=== PATIENT | male | born 1945 | race Caucasian/White ===

== ENCOUNTER 2024-05-25 21:35 | Inpatient (IN) | payer OTHER ==
[~2024-05-25] VITALS: Ht 170.2 cm; Wt 81.6 kg
[2024-05-25] MEDS ORDERED: MORPHINE SULFATE 4 MG/1 ML DISP.SYRIN ONE (22:39)
[2024-05-25] MEDS: FAMOTIDINE. 20 MG/2 ML VIAL IV ONE (23:05)
[2024-05-25] MEDS: MORPHINE SULFATE 2 MG/1 ML DISP.SYRIN IV ONE (23:05)
[2024-05-25] MEDS: IV NS 1000 ML 1,000 ML IV ONE (23:05)
[2024-05-25] MEDS: ONDANSETRON 4 MG/2 ML VIAL IV ONE (23:05)
[2024-05-25 23:07] LABS: CALCIUM 9.5 mg/dL (8.5-10.1); CARBON DIOXIDE 26 mmol/L (21-32); CHLORIDE 97 mmol/L (98-107); CREATININE 0.9 mg/dL (0.6-1.3); GLUCOSE 140 mg/dL (74-106); POTASSIUM 3.1 mmol/L (3.5-5.1); SODIUM SERUM 135 mmol/L (136-145); UREA NITROGEN, BLOOD 9 mg/dL (7-18)
[2024-05-25 23:08] LABS: BASOPHILS % (AUTO) 0.1 % (0.0-2.0); HEMATOCRIT 46.7 % (36.7-47.1); HEMOGLOBIN 16.1 g/dL (12.5-16.3); LYMPHOCYTES # (AUTO) 0.3 K/uL (0.8-4.8); LYMPHOCYTES % (AUTO) 1.5 % (20.5-51.5); MEAN CORPUSCULAR HEMOGLOBIN 29.7 uug (23.8-33.4); MEAN CORPUSCULAR HGB CONC 34 g/dL (32.5-36.3); MEAN CORPUSCULAR VOLUME 86.5 fL (73.0-96.2); MONOCYTES # (AUTO) 1.4 K/uL (0.1-1.30); MONOCYTES % (AUTO) 6.3 % (0.0-11.0); NEUTROPHILS # (AUTO) 19.8 K/uL (1.8-8.9); NEUTROPHILS % (AUTO) 92.1 % (38.5-71.5); PLATELET COUNT (AUTO) 155 K/uL (152-348); RED BLOOD CELL COUNT(AUTO) 5.41 MIL/uL (4.06-5.63); RED CELL DISTRIBUTION WIDTH 14.2 % (12.1-16.2); WHITE BLOOD COUNT (AUTO) 21.5 K/uL (3.6-10.2)
[2024-05-25 23:09] LABS: DIFFERENTIAL COMMENT 1
[2024-05-25 23:14] LABS: ALANINE AMINOTRANSFERASE 271 U/L (16-63); ALKALINE PHOSPHATASE 455 U/L (50-136); ASPARTATE AMINOTRANSFERASE 161 U/L (15-37); BILIRUBIN,DIRECT 5.1 mg/dL (0.0-0.2); BILIRUBIN,TOTAL 8.2 mg/dL (0.2-1.0); LIPASE 31 U/L (16-77); TOTAL PROTEIN, SERUM 7.7 g/dL (6.4-8.2)
[2024-05-25] MEDS ORDERED: PIPERACILLIN/TAZO 4.5 GM VIAL IV ONE (23:33)
[2024-05-25] MEDS: PIPERACILLIN SODIUM/TAZOBACTAM 4.5 G in IV DEXTROSE 5% 50 ML IV SCH (23:46)
[2024-05-26] MEDS: PIPERACILLIN SODIUM/TAZOBACTAM 4.5 G in IV DEXTROSE 5% 50 ML IV STA (00:10)
[2024-05-26] MEDS ORDERED: HYDROMORPHONE 1 MG/1 ML DISP.SYRIN ONE (00:15)
[2024-05-26] MEDS: HYDROMORPHONE 1 MG/1 ML DISP.SYRIN IV ONE (00:16)
[2024-05-26 00:29] LABS: *BLOOD, URINE 2+ (NEGATIVE); *CLARITY,URINE CLEAR (CLEAR); *COLOR,URINE YELLOW (YELLOW); *KETONES,URINE 2+ (NEGATIVE); *PROTEIN,URINE NEGATIVE (NEGATIVE); *UROBILINOGEN,URINE 0.2 E.U./dl (NORMAL); LEUKOCYTE ESTERASE ,URINE NEGATIVE (NEGATIVE); NITRITE, URINE NEGATIVE (NEGATIVE); PH,URINE 6.5 (5.0-8.0); UGLUCOSE NEGATIVE (NEGATIVE)
[2024-05-26 00:31] LABS: *BILIRUBIN,URIN 1+ (NEGATIVE)
[2024-05-26 00:43] LABS: BACTERIA,URINE RARE /HPF (NONE SEEN); RBC,URINE 20-50 /HPF (0-3); SQUAMOUS EPITHELIAL CELL,UR FEW /HPF (NONE SEEN); WBC,URINE 0-3 /HPF (0-3)
[2024-05-26] MEDS ORDERED: REMEDY ESSENTIAL ZINC PASTE 113 GM TP PRN (01:00)
[2024-05-26] MEDS ORDERED: ONDANSETRON 4 MG/2 ML VIAL IV PRN (01:00)
[2024-05-26] MEDS ORDERED: AMLO10TA59 PO (01:20)
[2024-05-26] MEDS ORDERED: LISI40TA13 PO (01:20)
[2024-05-26] MEDS ORDERED: ATOR40TA PO (01:20)
[2024-05-26] MEDS ORDERED: TIMO5DRO18 EACHEYE (01:23)
[2024-05-26] MEDS ORDERED: LATA7.5D OP (01:23)
[2024-05-26] MEDS ORDERED: BRIM10DR6 EACHEYE (01:23)
[2024-05-26] MEDS: MORPHINE SULFATE 2 MG/1 ML DISP.SYRIN IV PRN (02:46)
[2024-05-26] MEDS ORDERED: PIPERACILLIN/TAZOBACTAM/D5W 50 ML IV ONE (03:45)
[2024-05-26 05:35] VITALS: BP 145/71; TEMP 98.2; O2SAT 90
[2024-05-26] MEDS ORDERED: PIPERACILLIN SODIUM/TAZOBACTAM 3.375 G in IV DEXTROSE 5% 50 ML IV SCH (06:00)
[2024-05-26 06:46] LABS: BASOPHILS # (AUTO) 0.1 K/UL (0.0-0.2); BASOPHILS % (AUTO) 0.3 % (0.0-2.0); HEMATOCRIT 43.3 % (36.7-47.1); HEMOGLOBIN 15.1 g/dL (12.5-16.3); LYMPHOCYTES # (AUTO) 0.3 K/uL (0.8-4.8); LYMPHOCYTES % (AUTO) 1.4 % (20.5-51.5); MEAN CORPUSCULAR HEMOGLOBIN 30.4 uug (23.8-33.4); MEAN CORPUSCULAR HGB CONC 35 g/dL (32.5-36.3); MEAN CORPUSCULAR VOLUME 87.2 fL (73.0-96.2); MONOCYTES # (AUTO) 1.2 K/uL (0.1-1.30); MONOCYTES % (AUTO) 5.5 % (0.0-11.0); NEUTROPHILS # (AUTO) 19.9 K/uL (1.8-8.9); NEUTROPHILS % (AUTO) 92.8 % (38.5-71.5); PLATELET COUNT (AUTO) 131 K/uL (152-348); RED BLOOD CELL COUNT(AUTO) 4.96 MIL/uL (4.06-5.63); RED CELL DISTRIBUTION WIDTH 14.5 % (12.1-16.2); WHITE BLOOD COUNT (AUTO) 21.4 K/uL (3.6-10.2)
[2024-05-26 06:53] LABS: DIFFERENTIAL COMMENT 1
[2024-05-26 06:54] LABS: ALANINE AMINOTRANSFERASE 222 U/L (16-63); ALBUMIN 3.3 g/dL (3.4-5.0); ALKALINE PHOSPHATASE 382 U/L (50-136); ASPARTATE AMINOTRANSFERASE 126 U/L (15-37); BILIRUBIN,DIRECT 6.5 mg/dL (0.0-0.2); BILIRUBIN,TOTAL 9.2 mg/dL (0.2-1.0); CARBON DIOXIDE 28 mmol/L (21-32); CHLORIDE 100 mmol/L (98-107); CREATININE 1.3 mg/dL (0.6-1.3); GLUCOSE 108 mg/dL (74-106); MAGNESIUM 1.7 mg/dL (1.8-2.4); NT-PRO BNP 17371 pg/mL (0-125); PHOSPHOROUS 1.5 mg/dL (2.5-4.9); SODIUM SERUM 138 mmol/L (136-145); TOTAL PROTEIN, SERUM 6.7 g/dL (6.4-8.2); UREA NITROGEN, BLOOD 11 mg/dL (7-18)
[2024-05-26] MEDS: PIPERACILLIN SODIUM/TAZOBACTAM 3.375 G in IV DEXTROSE 5% 100 ML IV SCH (07:42)
[2024-05-26 07:51] VITALS: BP 123/61; TEMP 97.6; O2SAT 97
[2024-05-26] MEDS: MAGNESIUM SULFATE/D5W 100 ML IV SCH (08:15)
[2024-05-26] MEDS: POTASSIUM CHLORIDE 50 ML IV SCH (08:15)
[2024-05-26] MEDS: PANTOPRAZOLE SODIUM 40 MG VIAL IV SCH (08:17)
[2024-05-26 08:20] LABS: POTASSIUM 2.7 mmol/L (3.5-5.1)
[2024-05-26 10:16] VITALS: BP 139/55
[2024-05-26] MEDS: LISINOPRIL 20 MG TABLET PO SCH (10:16)
[2024-05-26] MEDS ORDERED: ONDA4VIA23 IV (10:59)
[2024-05-26] MEDS ORDERED: PANT40VI IV (10:59)
[2024-05-26] MEDS ORDERED: PIPE3.379 IV (10:59)
[2024-05-26 11:17] LABS: ALANINE AMINOTRANSFERASE 212 U/L (16-63); ALBUMIN 3.4 g/dL (3.4-5.0); ALKALINE PHOSPHATASE 362 U/L (50-136); ASPARTATE AMINOTRANSFERASE 123 U/L (15-37); BILIRUBIN,TOTAL 9.2 mg/dL (0.2-1.0); CARBON DIOXIDE 25 mmol/L (21-32); CHLORIDE 101 mmol/L (98-107); CREATININE 1.2 mg/dL (0.6-1.3); GLUCOSE 109 mg/dL (74-106); POTASSIUM 2.9 mmol/L (3.5-5.1); SODIUM SERUM 139 mmol/L (136-145); TOTAL PROTEIN, SERUM 6.7 g/dL (6.4-8.2); UREA NITROGEN, BLOOD 13 mg/dL (7-18)
[2024-05-26] MEDS: TIMOLOL MALEATE 0.5% OPHT DROP 5 ML BOTTLE EACHEYE SCH (11:34)
[2024-05-26] MEDS: BRIMONIDINE 0.2% OPHT DROP 10 ML BOTTLE EACHEYE SCH (11:34)
[2024-05-26] MEDS ORDERED: LATANOPROST OPHT DROP 2.5 ML BOTTLE EACHEYE SCH (21:00)
[2024-05-27] MEDS ORDERED: AMLODIPINE 10 MG TABLET PO SCH (09:00)
== END 2024-05-26 15:34 | disposition short-term general hospital (02) | DRG 444 ==
LOC: ER 21:37 → TELE3 05-26 01:00
PROVIDERS: ADMIT Nurse Practitioner Family; ATTEND Nurse Practitioner Acute Care
DX: K80.20 Calculus of gallbladder without cholecystitis without obstruction (principal); I21.A1 Myocardial infarction type 2; R65.10 Systemic inflammatory response syndrome (SIRS) of non-infectious origin without acute organ dysfunction; E87.1 Hypo-osmolality and hyponatremia; N17.9 Acute kidney failure, unspecified; K57.30 Diverticulosis of large intestine without perforation or abscess without bleeding; R74.01 Elevation of levels of liver transaminase levels; I10 Essential (primary) hypertension; H40.9 Unspecified glaucoma; E83.42 Hypomagnesemia; M15.9 Polyosteoarthritis, unspecified; I44.4 Left anterior fascicular block; E87.6 Hypokalemia; Z87.891 Personal history of nicotine dependence; E78.5 Hyperlipidemia, unspecified; E83.39 Other disorders of phosphorus metabolism; E86.9 Volume depletion, unspecified
CPT/HCPCS: 36415; 71045; 76705; 83605; 83690; 83735; 84100; 84484; 85025; 85730; 87040; 93005; A4663; G0378; J1170; J2270; J2405; J2470; J2543; J3475; J3480; J3490; J7040